=== PATIENT | male | born 1960 | race African-American/Black ===

== ENCOUNTER 2023-05-26 12:39 | Inpatient (IN) | payer BC, SELFPAY ==
[2023-05-26] MEDS ORDERED: Ondansetron ODT 4 MG TAB PO PRN (13:49)
[2023-05-26] MEDS ORDERED: Ondansetron PF 4 MG/2 ML Vial IVP PRN (13:49)
[2023-05-26] MEDS ORDERED: Acetaminophen 325 MG TAB PO PRN (13:49)
[2023-05-26] MEDS ORDERED: hydrALAZINE 20 MG/ML VIAL SLOW IVP PRN (13:55)
[2023-05-26 14:20] LABS: Troponin I 0.057 ng/mL (< 0.028)
[2023-05-26 15:06] VITALS: BMI 24.3
[2023-05-26] MEDS ORDERED: Furosemide 40 MG/4 ML VIAL SLOW IVP SCH (16:00)
[2023-05-26] MEDS ORDERED: Sertraline 100 MG TAB PO SCH (16:00)
[2023-05-26] MEDS ORDERED: Nicotine 14 MG PATCH TD SCH (16:00)
[2023-05-26] MEDS: Nicotine 14 MG PATCH TD SCH (16:53)
[2023-05-26 19:16] LABS: Troponin I 0.046 ng/mL (< 0.028)
[2023-05-26] MEDS: diphenhydrAMINE 25 MG CAP PO SCH (20:53)
[2023-05-27 04:46] LABS: #Eosinphils 0.1 10x3/uL (0.0-0.5); #Monocytes 0.9 10x3/uL (0.0-1.1); #Neutrophils 8.6 10x3/uL (1.5-8.4); %Basophils 0.3 % (0.0-2.0); %Eosinophils 0.4 % (0.0-6.0); %Lymphocytes 18.9 % (18.0-47.0); %Monocytes 7.8 % (0.0-10.0); %Neutrophils 72.3 % (40.0-75.0); Hematocrit 44.1 % (38.8-50.0); Hemoglobin 14.5 g/dL (13.5-17.5); Mean Corpuscular HGB CONC 32.9 g/dL (32.0-36.0); Mean Corpuscular Hemoglobin 32.7 pg (27.0-33.0); Mean Corpuscular Volume 99.5 fl (81.2-95.1); Mean Platelet Volume 10.2 fl (7.4-10.4); Platelet Count 224 10x3/uL (150-450); RBC Distribution Width 12.6 % (11.5-14.5); Red Blood Cell (RBC) Count 4.43 10x6/uL (4.32-5.72); White Blood Cell (WBC) Count 11.8 10x3/uL (3.5-10.5)
[2023-05-27 04:57] LABS: Anion Gap 13 mmol/L (10-20); BUN (Urea Nitrogen) 23 mg/dL (8.4-25.7); Calc. Creatinine Clearance 61 mL/min (70-130); Calcium 9.1 mg/dL (7.8-10.44); Carbon Dioxide 28 mmol/L (23-31); Chloride 102 mmol/L (98-107); Estimated GFR 66; Glucose 102 mg/dL (80-115); Potassium 3.8 mmol/L (3.5-5.1); Sodium 139 mmol/L (136-145)
[2023-05-27] MEDS: Furosemide 40 MG/4 ML VIAL SLOW IVP SCH ×2 (06:23→15:12)
[2023-05-27] MEDS: Aspirin Chewable 81 MG TAB PO SCH (08:48)
[2023-05-27] MEDS: Sertraline 100 MG TAB PO SCH (08:48)
[2023-05-27] MEDS: Nicotine 14 MG PATCH TD SCH (08:48)
[2023-05-27] MEDS: Ziprasidone 20 MG CAP PO SCH (08:49)
[2023-05-27] MEDS: Transdermal Patch Removal TOP SCH (08:49)
[2023-05-27] MEDS ORDERED: Valsartan 80 MG TAB PO SCH (11:00)
[2023-05-27] MEDS: Valsartan 80 MG TAB PO SCH (20:58)
[2023-05-27] MEDS: diphenhydrAMINE 25 MG CAP PO SCH (20:58)
[2023-05-27] MEDS: Atorvastatin Calcium 40 MG TAB PO SCH (20:58)
[2023-05-28 04:32] LABS: #Basophils 0.1 10x3/uL (0.0-0.2); #Eosinphils 0.1 10x3/uL (0.0-0.5); #Monocytes 0.6 10x3/uL (0.0-1.1); #Neutrophils 3.7 10x3/uL (1.5-8.4); %Basophils 0.7 % (0.0-2.0); %Lymphocytes 36.2 % (18.0-47.0); %Neutrophils 51.8 % (40.0-75.0); Hematocrit 43.1 % (38.8-50.0); Mean Corpuscular HGB CONC 34.8 g/dL (32.0-36.0); Mean Corpuscular Hemoglobin 33.9 pg (27.0-33.0); Mean Corpuscular Volume 97.3 fl (81.2-95.1); Mean Platelet Volume 10.7 fl (7.4-10.4); Platelet Count 244 10x3/uL (150-450); RBC Distribution Width 12.4 % (11.5-14.5); Red Blood Cell (RBC) Count 4.43 10x6/uL (4.32-5.72); White Blood Cell (WBC) Count 7.2 10x3/uL (3.5-10.5)
[2023-05-28 04:33] LABS: Anion Gap 12 mmol/L (10-20); BUN (Urea Nitrogen) 25 mg/dL (8.4-25.7); Calc. Creatinine Clearance 55 mL/min (70-130); Calcium 9.1 mg/dL (7.8-10.44); Carbon Dioxide 29 mmol/L (23-31); Chloride 101 mmol/L (98-107); Estimated GFR 62; Glucose 98 mg/dL (80-115); Sodium 138 mmol/L (136-145)
[2023-05-28 04:37] LABS: Cardiac Risk 3.5 (Less than 4.5); Cholesterol 173 mg/dl (< 200 Desired); HDL Cholesterol 50 mg/dL (>60 Neg Risk); LDL Cholesterol, Calculated 103 mg/dL; Triglycerides 99 mg/dL (Less than 150)
[2023-05-28] MEDS: Furosemide 40 MG/4 ML VIAL SLOW IVP SCH (05:43)
[2023-05-28] MEDS: Aspirin Chewable 81 MG TAB PO SCH (08:40)
[2023-05-28] MEDS: Sertraline 100 MG TAB PO SCH (08:40)
[2023-05-28] MEDS: Valsartan 80 MG TAB PO SCH ×2 (08:40→20:35)
[2023-05-28] MEDS: Ziprasidone 20 MG CAP PO SCH (08:40)
[2023-05-28] MEDS: Nicotine 14 MG PATCH TD SCH (08:41)
[2023-05-28] MEDS: Transdermal Patch Removal TOP SCH (08:41)
[2023-05-28] MEDS ORDERED: Furosemide 40 MG TAB PO SCH (14:00)
[2023-05-28] MEDS: Atorvastatin Calcium 40 MG TAB PO SCH (20:34)
[2023-05-28] MEDS: diphenhydrAMINE 25 MG CAP PO SCH (20:34)
[2023-05-29 04:23] LABS: ALT (SGPT) 74 U/L (8-55); AST (SGOT) 21 U/L (5-34); Albumin 3.9 g/dL (3.4-4.8); Alkaline Phosphatase 95 U/L (40-110); Anion Gap 13 mmol/L (10-20); BUN (Urea Nitrogen) 33 mg/dL (8.4-25.7); Bilirubin, Total 1.4 mg/dL (0.2-1.2); Calc. Creatinine Clearance 50 mL/min (70-130); Calcium 9.2 mg/dL (7.8-10.44); Carbon Dioxide 28 mmol/L (23-31); Chloride 99 mmol/L (98-107); Estimated GFR 56; Globulin 2.7 g/dL (2.4-3.5); Glucose 91 mg/dL (80-115); Potassium 4.3 mmol/L (3.5-5.1); Protein, Total 6.6 g/dL (5.8-8.1); Sodium 136 mmol/L (136-145)
[2023-05-29 04:35] LABS: #Basophils 0.1 10x3/uL (0.0-0.2); #Eosinphils 0.2 10x3/uL (0.0-0.5); #Monocytes 0.7 10x3/uL (0.0-1.1); #Neutrophils 3.4 10x3/uL (1.5-8.4); %Basophils 0.7 % (0.0-2.0); %Eosinophils 2.9 % (0.0-6.0); %Lymphocytes 37.1 % (18.0-47.0); %Monocytes 10.2 % (0.0-10.0); %Neutrophils 48.8 % (40.0-75.0); Hematocrit 45.4 % (38.8-50.0); Hemoglobin 15.6 g/dL (13.5-17.5); Mean Corpuscular HGB CONC 34.4 g/dL (32.0-36.0); Mean Corpuscular Hemoglobin 33.3 pg (27.0-33.0); Mean Corpuscular Volume 96.8 fl (81.2-95.1); Mean Platelet Volume 9.9 fl (7.4-10.4); Platelet Count 269 10x3/uL (150-450); RBC Distribution Width 12.3 % (11.5-14.5); Red Blood Cell (RBC) Count 4.69 10x6/uL (4.32-5.72)
[2023-05-29 07:55] VITALS: BP 110/71; TEMP 98
[2023-05-29] MEDS: Ziprasidone 20 MG CAP PO SCH (08:22)
[2023-05-29] MEDS: Sertraline 100 MG TAB PO SCH (08:23)
[2023-05-29] MEDS: Nicotine 14 MG PATCH TD SCH (08:23)
[2023-05-29] MEDS: Valsartan 80 MG TAB PO SCH (08:23)
[2023-05-29] MEDS: Aspirin Chewable 81 MG TAB PO SCH (08:23)
[2023-05-29] MEDS: Transdermal Patch Removal TOP SCH (08:24)
[2023-05-29] MEDS ORDERED: Furosemide 40 MG TAB PO SCH (09:00)
== END 2023-05-29 11:20 | disposition home or self-care (01) | DRG 291 ==
LOC: CSHTELE 12:39
PROVIDERS: ADMIT Family Medicine; ATTEND Family Medicine
DX: I11.0 Hypertensive heart disease with heart failure (principal); I50.43 Acute on chronic combined systolic (congestive) and diastolic (congestive) heart failure; I42.9 Cardiomyopathy, unspecified; F20.9 Schizophrenia, unspecified; F17.210 Nicotine dependence, cigarettes, uncomplicated; K76.9 Liver disease, unspecified; F12.10 Cannabis abuse, uncomplicated; I16.0 Hypertensive urgency; E78.5 Hyperlipidemia, unspecified; Z79.899 Other long term (current) drug therapy
CPT/HCPCS: 36415; 80048; 80053; 80061; 84439; 84443; 85025; 93005; 93010; 93306; 94760; J1940